=== PATIENT | male | born 1975 | race Caucasian/White ===

== ENCOUNTER → 2016-05-07 | Outpatient (CLI) | payer BC ==
[2016-05-07 17:06] LABS: HEMATOCRIT 44.2 % (42.0-52.0); HEMOGLOBIN 14.9 g/dL (14.0-18.0); MEAN CORPUSCULAR HEMOGLOBIN 29.2 PG (27-31); MEAN CORPUSCULAR HGB CONC 33.7 g/dL (33-37); MEAN PLATELET VOLUME 9.3 FL (7.4-12.2); RDW COEFFICIENT OF VARIATION 13.1 % (11.5-14.5); RED BLOOD COUNT 5.1 10^6/uL (4.70-6.10); WHITE BLOOD COUNT 10.25 10^3/uL (4.8-10.8)
--- NOTE | 2016-05-07 17:08 | DI ---
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 Previous Exam: None at this facility. Findings: PA and lateral views of the chest are obtained, and demonstrate clear lungs. There is some tenting of the right hemithorax which appears to be a normal variant. The cardiomediastinum and bony thorax are unremarkable. Impression: 1. No acute disease.
[2016-05-07 17:27] LABS: ASPARTATE AMINO TRANSFERASE 23 IU/L (21-57); BILIRUBIN,TOTAL 0.4 mg/dL (0.3-1.2); BLOOD UREA NITROGEN 19 mg/dL (7-22); BUN/CREATININE RATIO 21.11 (6-20); CALCIUM 10.7 mg/dL (8.7-10.7); CHLORIDE 102 meq/L (98-112); CREATININE 0.9 mg/dL (0.70-1.50); EST GLOMERULAR FILTRATION > 60 (>60 ml/min/1.73m(2)); GLUCOSE 82 mg/dL (78-110); POTASSIUM 4.6 meq/L (3.8-5.2); SODIUM 141 meq/L (135-145); TOTAL PROTEIN 8.2 g/dL (6.1-8.0)
== END ==
LOC: MOB LAB 16:21
PROVIDERS: ATTEND Family Medicine
DX: Z87.09 Personal history of other diseases of the respiratory system (principal)
CPT/HCPCS: 36415; 71020; 80053; 85027

== ENCOUNTER → 2016-05-08 | Outpatient (CLI) | payer BC | LOC: LAB 13:27 | PROVIDERS: ATTEND Family Medicine | DX: M54.6 Pain in thoracic spine (principal) | CPT/HCPCS: 36415; 85379 ==

== ENCOUNTER → 2016-11-13 | Outpatient (CLI) | payer BC ==
--- NOTE | 2016-11-13 14:34 | DI ---
History: Osteoarthritis of the spine with radiculopathy Comparison April 04, 2015 Findings: There is intervertebral disc space narrowing and endplate osteophyte formation at the level of L1-2 w hich is a new finding since previous plain film study of April 04, 2015. There is intervertebral disc space narrowing at the level of L5-S1 which is unchanged There is no compression fracture There is no spondylolisthesis SI joints are unremarkable. Impression Intervertebral disc space narrowing and endplate osteophyte formation at the level of L1-2 which is a new finding since the previous plain film study of April 04, 2015 Intervertebral disc space narrowing at L5-S1 unchanged
== END ==
LOC: RAD 10:00
PROVIDERS: ATTEND Physician Assistant
DX: M47.26 Other spondylosis with radiculopathy, lumbar region (principal)
CPT/HCPCS: 72110

== ENCOUNTER → 2016-11-20 | Outpatient (CLI) | payer BC ==
--- NOTE | 2016-11-20 10:17 | DI ---
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 Previous Exam: None. Technique: Sagittal and axial T2 weighted; sagittal T1 weighted and T2 STIR; and axial PD. The vertebral bodies are of normal height and size. There is disc space narrowing at L1-2 and L5-S1 o f moderate severity with mild narrowing at the remaining levels. Desiccation changes are noted at L1- 2, L4-5, and L5-S1. The cord terminates at T12. The conus medullaris is normal. There is a bulging bu t not herniated disc without neural foraminal stenosis at T11-12. The AP diameter of the canal is at the lower limits of normal. T12-L1 disc space is normal. There is a circumferentially bulging but not herniated disc without canal or neural foraminal stenosis at L1-2. L2-3 and L3-4 both have very mild central bulging but not herniated discs without canal or neural foraminal stenosis. There is a small focal left anterior disc herniation at L4-5 without canal or neural foraminal stenosis. This disc he rniation may cause impingement on the left L5 nerve root just before it enters into the lateral reces s of L5. L5-S1 has a central focal bulging disc with an associated disc annulus tear. There is no can al or neural foraminal stenosis. Readin. There is a small left anterior focal disc herniation at L4-5 that may cause impingement on the le ft L5 nerve root before it enters into the lateral recess of L5. There is no canal or neural foramina l stenosis. 2. There are bulging but not herniated discs without canal or neural foraminal stenosis at T11-12, L 2-3 through L3-4, and at L5-S1. 3. The T12-L1 disc space is normal.
== END ==
LOC: MRI 08:50
PROVIDERS: ATTEND Physician Assistant
DX: M47.26 Other spondylosis with radiculopathy, lumbar region (principal); M51.26 Other intervertebral disc displacement, lumbar region; M47.815 Spondylosis without myelopathy or radiculopathy, thoracolumbar region; M47.817 Spondylosis without myelopathy or radiculopathy, lumbosacral region
CPT/HCPCS: 72148